=== PATIENT | male | born 1965 | race Caucasian/White ===

== ENCOUNTER 2025-04-05 21:18 | Emergency (ER) | payer OTHER ==
[~2025-04-05] VITALS: Ht 165.1 cm; Wt 76.2 kg
[2025-04-05 21:18] VITALS: TEMP 36.8; O2SAT 100
[2025-04-05] MEDS: LIDOCAINE 5% PATCH TOP SCH (22:36)
[2025-04-05] MEDS: KETOROLAC 15MG/ML VIAL IM ONE (22:39)
[2025-04-05] MEDS ORDERED: NAPR-1176 MT (22:49)
[2025-04-05] MEDS ORDERED: LIDO-53 TP (22:49)
[2025-04-05 23:22] VITALS: BP 140/85; PULSE 67; RESP 17; O2SAT 100
== END 2025-04-05 23:24 | disposition home or self-care (01) ==
LOC: ER 21:18
DX: M25.512 Pain in left shoulder (principal); E11.9 Type 2 diabetes mellitus without complications
CPT/HCPCS: 99283; 73030; 96372; J1885